=== PATIENT | female | born 1955 | race African-American/Black ===

== ENCOUNTER 2020-10-10 08:22 | Day surgery (SDC) | payer BC, MEDICARE ==
[2020-10-10] VITALS (11 sets, daily range): BP systolic 112–138; BP diastolic 69–84
[~2020-10-10] VITALS: Ht 157.5 cm; Wt 61.2 kg
--- NOTE | 2020-10-10 07:10 | Pre-Procedure Note/Attestation ---
Pre-Procedure Note/Attestation Complete Prior to Procedure Planned Procedure: right Procedure Narrative: right knee scope, medial meniscectomy and chondroplasty Indications for Procedure Pre-Operative Diagnosis: right knee medial meniscus tear Attestation I attest that I discussed the nature of the procedure; its benefits; risks and complications; and alternatives (and the risks and benefits of such alternatives), prior to the procedure, with the patient (or the patient's legal in store marketing representative). I attest that, if there was a reasonable possibility of needing a blood transfusion, the patient (or the patient's legal in store marketing representative) was given the [facility] standardized written summary, pursuant to the Wilber Radha Blood Safety Act ([place] Health and Safety Code # 1645, as amended). I attest that I re-evaluated the patient just prior to the surgery and that ther e has been no change in the patient's H&P, except as documented below:none Tee Zacarias MD Oct 10, 2020 07:10
[~2020-10-10 08:22] MED LIST: ceFAZolin 1gm IVPB IVPB ONE; celeBREX 200mg Cap **SURGERY PATIENTS ONLY ORAL ONE
[2020-10-10] MEDS ORDERED: CHLOROPHYLL 201 EACH PO (09:03)
[2020-10-10] MEDS ORDERED: ELDERBERRY-VIT1 EACH PO (09:03)
[2020-10-10] MEDS ORDERED: TURMERIC 450-51 EAC1 PO (09:03)
[2020-10-10] MEDS ORDERED: celeBREX 200mg Cap **SURGERY PATIENTS ONLY ORAL ONE (09:05)
[2020-10-10] MEDS ORDERED: Tylenol #3 tab (300mg/30mg) ORAL PRN (09:45)
[2020-10-10] MEDS ORDERED: HYDROmorphone 1mg/ml Carpuject SUBQ PRN (09:45)
[2020-10-10] MEDS ORDERED: HYDROcodone/Acetamin 5/325 tab ORAL PRN ×2 (09:45→10:00)
--- NOTE | 2020-10-10 09:58 | Anethesia Preoperative Eval ---
Anesthesia Pre-op PMH/ROS General Date of Evaluation: Oct 10, 2020 Time of Evaluation: 10:16 Anesthesiologist: Cristy ASA Score: ASA 2 Mallampati Score Class I : Soft palate, uvula, fauces, pillars visible Class II: Soft palate, uvula, fauces visible Class III: Soft palate, base of uvula visible Class IV: Only hard plate visible Mallampati Classification: Class II Surgeon: Deann Diagnosis: R Knee Pain Surgical Procedure: R Knee Arthroscopy Anesthesia History: none Family History: no anesthesia problems Allergies: Coded Allergies: No Known Allergies (Unverified , 10/06/20) Medications: see eMAR Patient NPO?: Yes Past Medical History Cardiovascular: Reports: HTN Neurologic/Psychiatric: Reports: other - Headache Anesthesia Pre-op Phys. Exam Physician Exam Last Vital Signs Date Time Temp Pulse Resp B/P (MAP) Pulse Ox O2 Delivery O2 Flow Rate FiO2 10/10/20 08:50 97.3 76 18 112/70 98 Room Air Constitutional: NAD Neurologic: CN 2-12 intact Cardiovascular: RRR Respiratory: CTA Gastrointestinal: S/NT/ND Airway Exam Mallampati Score: Class II MO: full ROM: limited Teeth: missing, intact Anesthesia Pre-op A/P Risk Assessment & Plan Assessment: ASA 2 Plan: GA, SED Status Change Before Surgery: No Pre-Antibiotics Dru Gram Ancef IV Given Within 1 Hr of Incision: Yes Time Given: 10:31 Nelson Muniz MD Oct 10, 2020 09:58
[2020-10-10] MEDS ORDERED: Bupivacaine 0.5% Inj 30 ml vial INJ ONE (09:59)
[2020-10-10] MEDS ORDERED: Ropivacaine 5mg/ml Vial 30ml INJ ONE (09:59)
[2020-10-10] MEDS ORDERED: EPINEPHrine 1mg/1ml Amp ONE (09:59)
--- NOTE | 2020-10-10 09:59 | Immediate Post-Op Evaluation ---
Immediate Post-Op Evalulation Immediate Post-Op Evalulation Procedure: R Knee Arthroscopy Date of Evaluation: Oct 10, 2020 Time of Evaluation: 11:59 IV Fluids: 500 LR Blood Products: 0 Estimated Blood Loss: 25 Urinary Output: 0 Blood Pressure Systolic: 125 Blood Pressure Diastolic: 84 Pulse Rate: 81 Respiratory Rate: 16 O2 Sat by Pulse Oximetry: 100 Temperature (Fahrenheit): 97.6 Pain Score (1-10): 2 Nausea: No Vomiting: No Complications 0 Patient Status: awake, reacts, patent, none Hydration Status: adequate Dru Gram Ancef IV Given Within 1 Hr of Incision: Yes Time Given: 09:31 Nelson Muniz MD Oct 10, 2020 09:59
[2020-10-10] MEDS ORDERED: LR 1000ml 1,000 ML IVLG SCH (10:00)
[2020-10-10] MEDS ORDERED: HYDROcodone/Acetamin 7.5/325 tab ORAL PRN (10:00)
[2020-10-10] MEDS ORDERED: DiphenhydrAMINE 50mg/ml Inj IVP PRN (10:00)
[2020-10-10] MEDS ORDERED: Sterile Water Irrig 1000ml IRRIG ONE (10:00)
[2020-10-10] MEDS ORDERED: oxyCODONE HCL/Acetaminophen 5/325mg ORAL PRN (10:00)
[2020-10-10] MEDS ORDERED: Labetalol 5mg/ml 20ml vial IV PRN (10:00)
[2020-10-10] MEDS ORDERED: Hydromorphone 0.5mg/0.5ml inj IVP PRN (10:00)
[2020-10-10] MEDS ORDERED: Midazolam 2mg/2ml Inj IVP PRN (10:00)
[2020-10-10] MEDS ORDERED: Ketorolac 30mg Inj IV PRN ×2 (10:00)
[2020-10-10] MEDS ORDERED: fentaNYL 100 mcg/2 mL IV PRN (10:00)
[2020-10-10] MEDS ORDERED: LORazepam Inj 2mg/ml 1ml IV PRN (10:00)
[2020-10-10] MEDS ORDERED: Acetaminophen (Non formulary) 100 ML IV ONE (10:00)
[2020-10-10] MEDS ORDERED: Atropine Sulfate 0.4mg/ml inj IVP PRN (10:00)
[2020-10-10] MEDS ORDERED: LR 1000ml ONE (10:00)
[2020-10-10] MEDS ORDERED: Meperidine 25mg/1ml Inj (FOR RIGORS ONLY) IV PRN (10:00)
[2020-10-10] MEDS ORDERED: Metoclopramide 10mg/2ml Inj IVP PRN (10:00)
--- NOTE | 2020-10-10 10:00 | 48 Hour Post Anesthesia Eval ---
Post Anesthesia Evaluation Procedure: R Knee Arthroscopy Date of Evaluation: Oct 10, 2020 Time of Evaluation: 14:12 Blood Pressure Systolic: 124 0: 87 Pulse Rate: 67 Respiratory Rate: 18 Temperature (Fahrenheit): 98 O2 Sat by Pulse Oximetry: 100 Airway: patent Nausea: No Vomiting: No Pain Intensity: 2 Hydration Status: adequate Cardiopulmonary Status: Stable Mental Status/LOC: patient returned to baseline Follow-up Care/Observations: 0 Post-Anesthesia Complications: 0 Follow-up care needed: ready to discharge Nelson Muniz MD Oct 10, 2020 10:00
[2020-10-10] MEDS ORDERED: Lidocaine 1% MPF 10mg/ml 5ml ONE (10:03)
[2020-10-10] MEDS ORDERED: fentaNYL 100 mcg/2 mL IV ONE (10:04)
[2020-10-10] MEDS ORDERED: NS Irrig 3000ml IRRIG ONE ×4 (10:14→11:14)
[2020-10-10] MEDS ORDERED: D5 1/2NS 1,000 ML IV SCH (14:00)
--- NOTE | 2020-10-10 16:00 | Operative Note - Dictated ---
DATE OF OPERATION: 10/10/2020 PREOPERATIVE DIAGNOSES: 1. Right knee medial and lateral meniscus tearing. 2. Right knee arthritis with unstable chondral flaps. POSTOPERATIVE DIAGNOSES: 1. 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 2. Right knee posterior horn body lateral meniscus tearing involving 25% lateral meniscus. 3. Right knee evidence of previous meniscectomy with dissociation of the posterior horn from the meniscus to loose completely, now with re-tear of the posterior horn of the medial meniscus involving 20% medial meniscus. 4. Grade 3 and grade 4 chondral changes over the central portion of the lateral femoral condyle and posterior lateral tibial plateau as well as the medial femoral condyle measuring 1.5 to 2 cm each. PROCEDURE: 1. Right knee arthroscopy and extensive intra-articular shaving. 2. Right knee patellofemoral, medial femoral, and lateral femoral chondroplasty. 3. Right knee resection of multiple loose free-floating fragments. 4. Right knee partial lateral meniscectomy involving 20% of posterior horn body of lateral meniscus. 5. Right knee medial meniscectomy involving 20% of the remaining of the posterior horn of the medial meniscus, which was transected from the meniscus root at the time of her previous surgery. SURGEON: Tee Zacarias MD. PHYSICIAN OFFICE NURSE: Yanet Jarrett PA-C. Billet Grinder was present during the actual operative portion of the case and was important and essential part of the operation. During the operation, the bus assistant held and operated the arthroscopic camera for visualization, assisted by manipulating the leg to help with visualization, and helped with essential parts of the repair process as necessary such as operating surgical instruments under surgeon supervision, suture management, and wound closures. ANESTHESIOLOGIST: Nelson Muniz M.D. ANESTHESIA: General LMA anesthesia. TOURNIQUET TIME: 25 minutes. ESTIMATED BLOOD LOSS: 20 mL. COMPLICATIONS: None. SURGICAL INDICATION: The patient is a 65-year-old female, who sustained the above injury to her knee. The patient was treated non-operative initially, but this did not alleviate the patient's symptoms. Therefore, after discussing all non-surgical and surgical options, and discussing all foreseeable risk and benefits of surgery, the patient opted for surgical treatment as described above. PATIENT POSITIONING: The patient was brought to the operating room table and placed supine. All pressure points were well padded. Time out was performed and preop antibiotics were given. General Anesthesia was induced and a well padded tourniquet was placed on the thigh. The lateral post was placed and positioned to allow for opening of the medial compartment of the knee without placing pressure over the fibular head. The patient's entire leg was prepped and draped in the usual sterile fashion. Time out was performed and preoperative antibiotics were given and after exsanguinating the lower extremity, the tourniquet was inflated to 275 mm of mercury. EXAMINATION OF THE KNEE UNDER ANESTHESIA: Before prepping and draping the knee and while the patient was relaxed under general anesthesia, the knee was examined for ROM, and anterior and posterior, medial and lateral, posterolateral, and posteromedial instability. Pivot shift testing was performed. There was no evidence of loss of motion or instability and the pivot shift testing was negative. PORTAL PLACEMENT: The lateral portal was placed with the knee flexed to 90 degrees at the level of inferior border of the patella in line with the lateral border of the patella. A 0.5 cm skin incision was made with an eleven blade, and using a blunt obturator, the capsule was gently penetrated. Sterile saline solution was then infused inside the knee with the aid of a pump set at 35 mm mercury pressure. Under direct visualization, placement of the medial portal was preliminary judged using a spinal needle, and it was subsequently established using the same technique as the lateral portal. Care was given not to injure the cutaneous branches of the medial Saphenous nerve or the subcutaneous veins. DIAGNOSTIC ARTHROSCOPY: The suprapatellar patellar pouch was visualized. There was some free-floating loose fragment in the suprapatellar pouch measuring 5 to 7 mm. This large piece of cartilage had been floating around. The medial and lateral patellar facets and trochlear groove articular cartilage was visualized. There was extensive cartilage damage over the patellofemoral joint, both on the medial, lateral patellar facet as well as over the central trochlear groove. There was grade 4 chondromalacia in this area diffusely. There were some unstable chondral flaps in the area. The medial plica shelf and the corresponding medial femoral condyle articular cartilage were visualized. There was no significantly thickening of the medial plica shelf and there were no "kissing" lesions over the medial femoral condyle. The lateral gutter and the posterolateral corner of the knee were visualized. There were no loose bodies, and the popliteus tendon and other structures of the posterolateral corner of the knee were intact intra-articularly. At this point, the knee was placed in the figure of four position and the lateral compartment was entered. The lateral femoral condyle, lateral tibial plateau, and the anterior, body, and the posterior horn of the lateral meniscus were visualized and probed. There was some chondral damage over the lateral femoral condyle measuring 1 to 1.5 cm. There was corresponding to posterior lateral tibial plateau, grade 4 chondral changes that measuring 1 cm. There was unstable chondral flaps in that area. There was a tear of the posterior horn body lateral meniscus involving 20 patellar lateral meniscus. The knee was then placed at 90 degree and the ACL and PCL were visualized and probed. The ACL was completely intact on visualization and probing, and it had excellent tension. The PCL was completely intact on visualization and probing and it had excellent tension. The medial compartment was then entered and the medial femoral condyle, medial tibial plateau, and the anterior, body, and the posterior horn of the medial meniscus were visualized and probed. There was chondral damage over the medial femoral condyle measuring 1 x 1 cm with unstable chondral flap. This was grade 3/grade 4 chondromalacia. There was evidence of prior meniscectomy transecting the root from the posterior horn of the medial meniscus and creating a gap of about a centimeter. In the remaining posterior horn, there was a unstable flap tear of the medial meniscus involving 20% of medial meniscus. The medial gutter was visualized. There was no evidence of defect or loose fragments. The scope was then brought back to the patella femoral compartment. OPERATIVE ARTHROSCOPY: At this point, all loose debris and fragments were removed with the use of suction motorized shaver. Specific attention was given to assure all visible loose fragments were irrigated out of the knee joint with pump inflow and cannula outflow system. The loose fragments were identified and visualized. Using combination of the shaver, suction, and graspers, these loose fragments were removed. These loose fragments measured approximately 5 to 7 mm. All debris left behind was removed with combination of ilan and graspers. The frayed articular cartilage of the undersurface of the patella and the trochlear groove were debrided using a motorized shaver. Suction was used to pull in the loose fragments and flaps of the cartilage and to minimize damage to the intact and well attached portion of the cartilage. This allowed for a smooth surface for the articular cartilage gliding. At this point, attention was given to the lateral meniscus. Using combination of baskets and ilan, the torn portion of the lateral meniscus was removed. Attention was given to remove all displaced and unstable portion of the lateral meniscus while maintaining as much of the functional portion of the meniscus as possible. Approximately, 20% of the posterior horn body of the meniscus was removed in this fashion. The transition between the meniscectomy portion and intact portion of the meniscus was smoothed out with combination of small baskets and ilan. Excellent transition zone was obtained in this fashion. Care was given to the area of cartilage damage in the lateral compartment. The frayed and loose fragments of articular cartilage were debrided using a motorized shaver. Suction was used to pull in the loose fragments and flaps of the cartilage and to minimize damage to the intact and well attached portion of the cartilage. This allowed for smooth surfaces for the articular cartilage. At this point, attention was given to the medial meniscus. Using combination of baskets and ilan, the torn portion of the medial meniscus was removed. Attention was given to remove all displaced and unstable portion of the medial meniscus while maintaining as much of the functional portion of the meniscus as possible. Approximately, 20% of the posterior horn of the medial meniscus was removed in this fashion. The transition between the meniscectomy portion and intact portion of the meniscus was smoothed out with combination of small baskets and ilan. Excellent transition zone was obtained in this fashion. Care was given to the area of cartilage damage in the medial compartment. The frayed and loose fragments of articular cartilage were debrided using a motorized shaver. Suction was used to pull in the loose fragments and flaps of the cartilage and to minimize damage to the intact and well attached portion of the cartilage. This allowed for smooth surfaces for the articular cartilage. CONDITION AT DISCHARGE FROM OPERATING ROOM: The knee was irrigated with copious amount of normal saline at the end of the procedure. The scope was removed and the water was drained. The skin edges were re-approximated and sterile dressing was applied. All lap count and instrument counts were correct. Patient tolerated the procedure well without complications and was taken to the recovery room in stable conditions. Tee Clarisa Zacarias DR: REYNA JOB#: [id number] CC:
--- NOTE | 2020-10-11 10:44 | Brief Operative Note ---
Immediate Post Operative Note Operative Note Chief Complaint: knee pain Pre-op Diagnosis: meniscus tear Procedure: right knee scope meniscectomy Post-op Diagnosis: same as pre-op Findings: consistent w/pre-op dx studies Surgeon: md [employer] Specialist: christian agudelo Anesthesiologist: md reilly Anesthesia: general Specimen: none Complications: none Condition: stable Fluids: ns Estimated Blood Loss: minimal Drains: none Implant(s) used?: No Yanet Agudelo Oct 11, 2020 10:44
== END 2020-10-10 14:00 | disposition home or self-care (01) ==
LOC: SUR 08:22
DX: S83.241A Other tear of medial meniscus, current injury, right knee, initial encounter (principal); M17.11 Unilateral primary osteoarthritis, right knee; S83.281A Other tear of lateral meniscus, current injury, right knee, initial encounter; X58.XXXA Exposure to other specified factors, initial encounter; Y92.9 Unspecified place or not applicable; M94.261 Chondromalacia, right knee; I10 Essential (primary) hypertension
CPT/HCPCS: 29874; 29880; 94003; 97161; J0131; J0690; J1100; J1170; J2250; J2405; J2704; J2795; J3010; J7120; U0004; 94150